=== PATIENT | female | born 1970 | race Two or more races ===

== ENCOUNTER 2017-12-11 13:54 | Emergency (ER) | payer OTHER ==
--- NOTE | 2017-12-11 16:51 | RAD ---
HISTORY: Left foot pain, fifth metatarsals overuse COMPARISONS: None VIEWS: 3, Frontal, lateral, and oblique views of the left foot FINDINGS: BONE DENSITY: Normal. BONES: There is focal cortical thickening along the medial aspects of the fourth and fifth metatarsals distally. There is no appreciable erosion or periosteal reaction. JOINTS: There is no arthropathy. ALIGNMENT: There is no dislocation. SOFT TISSUES: Unremarkable. OTHER FINDINGS: None. IMPRESSION: FOCAL CORTICAL THICKENING ALONG THE DISTAL FOURTH AND FIFTH METATARSALS WHICH MAY REFLECT PREVIOUS STRESS INJURIES. THERE IS NO APPRECIABLE DISPLACED FRACTURE OR PERIOSTEAL REACTION TO SUGGEST ACUTE INJURY. IF SYMPTOMS PERSIST, RECOMMEND REPEAT IMAGING.
--- NOTE | 2017-12-11 17:02 | ED ---
Lower Extremity - HPI Summary HPI Summary: Pt here w/ Lt foot pain along outer edge since walking on treadmill for 2 hours at a faster pace than usual. He felt fine while walking. It wasn't until she went to get out of her vehicle after exercising and put weight on her foot that she noticed she had acute pain. She is able to move her toes and ankle without difficulty, denies numbness, tingling, weakness however is not able to bear weight on this foot without pain. No previous injury here. Has been icing with some relief. - History of Current Complaint Chief Complaint: EDExtremityLower Stated Complaint: LT LEG PAIN Time Seen by Provider: 12/11/17 15:21 Hx Obtained From: Patient Pain Intensity: 8 - Allergies/Home Medications Allergies/Adverse Reactions: Allergies Allergy/AdvReac Type Severity Reaction Status Date / Time hydrocodone Allergy Anaphylatic Verified 12/11/17 13:58 Shock oxycodone Allergy Anaphylatic Verified 12/11/17 13:58 Shock Sulfa (Sulfonamide Allergy Rash Verified 12/11/17 13:58 Antibiotics) PMH/Surg Hx/FS Hx/Imm Hx Previously Healthy: Yes Endocrine/Hematology History: Reports: Hx Anemia - 2ndry to menometrorrhagia - s /p hysterectomy Denies: Hx Anticoagulant Therapy, Hx Blood Disorders, Hx Coagulopothy Musculoskeletal History: Denies: Hx Arthritis, Hx Fibromyalgia, Hx Orthopedic Injury, Hx Tendonitis, Hx of Fracture(s) Infectious Disease History: No Infectious Disease History: Denies: Traveled Outside the [place] in Last 30 Days - Family History Known Family History: Positive: None - Social History Occupation: Student Lives: With Family Alcohol Use: None Hx Substance Use: No Substance Use Type: Reports: None Hx Tobacco Use: No Smoking Status (MU): Never Smoked Tobacco Physical Exam Vital Signs On Initial Exam: Initial Vitals Temp Pulse Resp BP Pulse Ox 98.4 F 77 18 127/77 97 12/11/17 13:57 12/11/17 13:57 12/11/17 13:57 12/11/17 13:57 12/11/17 13:57 Diagnostics - Vital Signs Vital Signs Temp Pulse Resp BP Pulse Ox 12/11/17 13:57 98.4 F 77 18 127/77 97 - Laboratory Diagnostic Studies Comment: Left foot x-ray report reviewed: "Focal cortical thickening along the distal fourth and fifth metatarsals which may reflect previous stress injuries. There is no appreciable displaced fracture or periosteal reaction to suggest acute injury. If symptoms persist, recommend repeat imaging." Lab Statement: Any lab studies that have been ordered have been reviewed, and results considered in the medical decision making process. Lower Extremity Course/Dx - Course Course Of Treatment: Although patient does not have acute signs of injury on x- ray, suspect she has an overuse injury along the fifth metatarsal that may involve tendons, fascia or other connective tissue. Provided with crutches and advised to rest ice and elevate as well as follow up with PCP if pain persists after 2 weeks as further imaging may be recommended. - Diagnoses Provider Diagnoses: Left foot pain Discharge - Discharge Plan Condition: Stable Disposition: HOME Patient Education Materials: Crutch Instructions (ED), Arthralgia (ED) Forms: *School Release Referrals: Delmi Charles MD [Primary Care Provider] - Additional Instructions: Rest, ice, elevation, compression with socks or Avni wrap He may take ibuprofen alternating with acetaminophen for pain and swelling He may also try topical rubs such as Biofreeze, arnica, BenGay, etc. Use crutches to avoid weightbearing until this tolerated over the next week or so. If pain continues, follow up with PCP as further imaging may be necessary. *If he developed numbness, weakness or change in the color of your skin/skin temperature, return to the emergency department
[2017-12-11 17:29] VITALS: BP 123/83
== END 2017-12-11 17:28 | disposition home or self-care (01) ==
LOC: ED 13:54
DX: M79.672 Pain in left foot (principal); Z88.5 Allergy status to narcotic agent; Z88.2 Allergy status to sulfonamides
CPT/HCPCS: 99282

== ENCOUNTER 2018-10-27 20:05 | Emergency (ER) | payer OTHER ==
[2018-10-27] MEDS ORDERED: Albuterol/Ipratropium NEB.SOL* Albuterol 2.5 MG/Ipratropium 0.5 MG 3 ML INH ONE (20:52)
[2018-10-27] MEDS ORDERED: Benzonatate CAP* 100 MG PO ONE (20:54)
[2018-10-27] MEDS ORDERED: predniSONE TAB* 20 MG PO ONE (22:36)
--- NOTE | 2018-10-27 22:39 | ED ---
Influenza-Like Illness - HPI Summary HPI Summary: Patient complains of headache, chills, cough, wheezing, SOB, sore throat, nausea 5 days. Also symptoms are intermittent. Denies fever, neck stiffness, V/D, abdominal pain, change in urine, change in BM. Medical history sleep apnea, asthma, anxiety, depression. Patient states she has tried inhalers at home without relief, also tried EpiPen this evening when she felt short of breath. No active SOB here in the ER. Patient has taken naproxen for 440 mg at 10 AM this morning. - History of Current Complaint Chief Complaint: EDUpperRespComplaint Time Seen by Provider: 10/27/18 20:16 Hx Obtained From: Patient Onset/Duration: Gradual Onset Severity: Moderate Associated Signs & Symptoms: Fever, Myalgia, Cough, Headache - Allergy/Home Medications Allergies/Adverse Reactions: Allergies Allergy/AdvReac Type Severity Reaction Status Date / Time hydrocodone Allergy Anaphylatic Verified 10/27/18 20:14 Shock oxycodone Allergy Anaphylatic Verified 10/27/18 20:14 Shock Sulfa (Sulfonamide Allergy Rash Verified 10/27/18 20:14 Antibiotics) Home Medications: Home Medications [place] Carbonate 300 mg PO DAILY 10/27/18 [History Confirmed 10/27/18] Singulair 5 mg TAB* 10 mg PO DAILY 10/27/18 [History Confirmed 10/27/18] Vortioxetine (NF) [Trintellix (NF)] 20 mg PO DAILY 10/27/18 [History Confirmed 10/27/18] ZyrTEC 10 MG TAB* 10 mg PO DAILY 10/27/18 [History Confirmed 10/27/18] traZODone TAB* 200 mg PO DAILY 10/27/18 [History Confirmed 10/27/18] PMH/Surg Hx/FS Hx/Imm Hx Endocrine/Hematology History: Reports: Hx Anemia - 2ndry to menometrorrhagia - s /p hysterectomy Denies: Hx Anticoagulant Therapy, Hx Blood Disorders, Hx Diabetes Cardiovascular History: Denies: Hx Hypertension, Hx Pacemaker/ICD Respiratory History: Reports: Hx Asthma Musculoskeletal History: Denies: Hx Arthritis, Hx Fibromyalgia, Hx Orthopedic Injury, Hx Tendonitis Sensory History: Denies: Hx Eye Prosthesis, Hx Hearing Aid Neurological History: Denies: Hx Developmental Delay Psychiatric History: Denies: Hx Panic Disorder - Surgical History Surgery Procedure, Year, and Place: HYSTERECTOMY, PLASTIC SURGERY CHEST&ABD, ABLATION, [facility]AS[facility] Infectious Disease History: No Infectious Disease History: Reports: Traveled Outside the [place] in Last 30 Days - Family History Known Family History: Positive: None - Social History Alcohol Use: None Hx Substance Use: No Substance Use Type: Reports: None Hx Tobacco Use: No Smoking Status (MU): Never Smoked Tobacco Review of Systems Positive: Fever, Chills Eyes: Negative Positive: Sore Throat Cardiovascular: Negative Positive: Shortness Of Breath, Cough Positive: Nausea Genitourinary: Negative Musculoskeletal: Negative Skin: Negative Positive: Headache Psychological: Normal All Other Systems Reviewed And Are Negative: Yes Physical Exam Triage Information Reviewed: Yes Vital Signs On Initial Exam: Initial Vitals Temp Pulse Resp BP Pulse Ox 97.9 F 97 22 180/100 100 10/27/18 20:08 10/27/18 20:08 10/27/18 20:08 10/27/18 20:08 10/27/18 20:08 Vital Signs Reviewed: Yes Appearance: Positive: Well-Appearing Skin: Positive: Warm Head/Face: Positive: Normal Head/Face Inspection Eyes: Positive: Normal ENT: Positive: Pharyngeal erythema Neck: Positive: Supple Respiratory/Lung Sounds: Positive: Clear to Auscultation Cardiovascular: Positive: Normal Abdomen Description: Positive: Nontender Musculoskeletal: Positive: Normal Neurological: Positive: Normal Psychiatric: Positive: Normal AVPU Assessment: Alert - Wilma Coma Scale Best Eye Response: 4 - Spontaneous Best Motor Response: 6 - Obeys Commands Best Verbal Response: 5 - Oriented Coma Scale Total: 15 Diagnostics - Vital Signs Vital Signs Temp Pulse Resp BP Pulse Ox 10/27/18 22:00 96 26 97 10/27/18 21:46 99 18 177/97 97 10/27/18 21:37 78 14 100 10/27/18 21:02 19 10/27/18 20:26 91 23 95 10/27/18 20:08 97.9 F 97 22 180/100 100 - Laboratory Lab Results: Lab Results 10/27/18 10/27/18 Range/Units 21:39 21:42 Influenza A (Rapid) Negative (Negative) Influenza B (Rapid) Negative (Negative) Group A Strep Rapid Negative (Negative) Lab Statement: Any lab studies that have been ordered have been reviewed, and results considered in the medical decision making process. Flu Symptom Course/Dx - Course Course Of Treatment: Patient complains of headache, chills, cough, wheezing, SOB , sore throat, nausea5 days. Also symptoms are intermittent. Denies fever, neck stiffness, V/D, abdominal pain, change in urine, change in BM. Medical history sleep apnea, asthma, anxiety, depression. Patient states she has tried inhalers at home without relief, also tried EpiPen this evening when she felt short of breath. No active SOB here in the ER. Patient has taken naproxen for 440 mg at 10 AM this morning. Physical exam: Pharyngeal erythema, otherwise unremarkable. Vital signs within normal limits. Chest x-ray negative. Negative for flu. Negative for strep. Likely viral syndrome. Rx for prednisone, Phenergan. Advised to alternate Tylenol and ibuprofen every 3 hours for headache and fever control. Patient has inhalers at home. - Diagnoses Provider Diagnoses: Viral syndrome Discharge - Sign-Out/Discharge Documenting (check all that apply): Patient Departure - Discharge Plan Condition: Stable Disposition: HOME Prescriptions: Benzonatate CAP* [Tessalon 100 MG CAP*] 200 mg PO TID 5 Days #30 cap predniSONE TAB* [Deltasone 20 MG TAB*] 40 mg PO DAILY 5 Days #10 tab Promethazine TAB* [Phenergan TAB*] 25 mg PO Q8H PRN 5 Days #15 tab PRN Reason: Nausea Patient Education Materials: Viral Syndrome (ED) Referrals: No Primary Care Phys,NOPCP [Primary Care Provider] - Additional Instructions: Take 650 mg Tylenol every 4 hours between naproxen for control of aches, headache and fever. Drink plenty of fluids to maintain hydration. Take off medicine as directed. Follow-up with primary care. Return to the ED for any new or worsening symptoms - Billing Disposition and Condition Condition: STABLE Disposition: Home
[2018-10-27] MEDS ORDERED: Acetaminophen TAB* 325 MG PO ONE ×2 (22:43)
[2018-10-27 22:59] VITALS: BP 161/101
== END 2018-10-27 22:57 | disposition home or self-care (01) ==
LOC: ED 20:05
DX: B34.9 Viral infection, unspecified (principal); Z88.5 Allergy status to narcotic agent; Z88.2 Allergy status to sulfonamides
CPT/HCPCS: 71046; 87651; 99283; A9270-GY; J7512